=== PATIENT | male | born 1965 | race Caucasian/White ===

== ENCOUNTER → 2017-05-30 | Outpatient (CLI) | payer MEDICAID | LOC: FIMAGING 12:44 | PROVIDERS: ATTEND Family Medicine | DX: N18.4 Chronic kidney disease, stage 4 (severe) (principal); R39.11 Hesitancy of micturition; E11.22 Type 2 diabetes mellitus with diabetic chronic kidney disease; I10 Essential (primary) hypertension ==

== ENCOUNTER 2017-06-11 09:12 | Day surgery (SDC) | payer MEDICAID ==
[2017-06-11] MEDS ORDERED: LIDOCAINE 1% 2 ML INJ ID PRN (09:40)
[2017-06-11] MEDS ORDERED: LR 1,000 ML IV ONE (09:40)
--- NOTE | 2017-06-11 09:42 | PDGENHP ---
History & Physical Chief Complaint: Screening colonoscopy Relevant Physical Exam: GEN: NAD. Cardiac: RRR. Lungs: CTA B. Abd: Soft, nt, nd
[2017-06-11] MEDS ORDERED: PROPOFOL/EMULSION 500 MG/50 ML BOTTLE IV ONE (09:56)
[2017-06-11] MEDS ORDERED: NALOXONE HCL 0.4 MG/ML INJ IVP PRN (10:09)
[2017-06-11] MEDS ORDERED: ACETAMINOPHEN 500 MG TAB PO PRN (10:09)
[2017-06-11] MEDS ORDERED: ONDANSETRON 4 MG/2 ML VIAL IVP PRN (10:09)
--- NOTE | 2017-06-11 10:09 | PDANEPAE ---
ANE History of Present Illness %2 yo M w CRF here for screening [place], also for pre-transplant protocol ANE Past Medical History - Cardiovascular History Hx Hypertension: Yes Hx Arrhythmias: No Hx Chest Pain: No Hx Coronary Artery / Peripheral Vascular Disease: No Hx CHF / Valvular Disease: No Hx Palpitations: No - Pulmonary History Hx COPD: No Hx Asthma/Reactive Airway Disease: No Hx Recent Upper Respiratory Infection: No Hx Oxygen in Use at Home: No Hx Sleep Apnea: No Sleep Apnea Screening Result - Last Documented: Negative - Neurologic History Hx Cerebrovascular Accident: No Hx Seizures: No Hx Dementia: No - Endocrine History Hx Diabetes: Yes Endocrine History Comment: IDDM - Renal History Hx Renal Disorders: Yes Renal History Comment: chronic renal failure, pre-transplant - Liver History Hx Hepatic Disorders: No - Neurological & Psychiatric Hx Hx Neurological and Psychiatric Disorders: No - Cancer History Hx Cancer: No - Congenital Disorder History Hx Congenital Disorders: No - GI History Hx Gastrointestinal Disorders: No Gastrointestinal History Comment: screening colonoscopy - Other Health History Other Health History: NEG - Chronic Pain History Chronic Pain: Yes (L FOOT) - Surgical History Prior Surgeries: MULTIPLE X8 L FOOT [id number]. EYE SURG CHILDHOOD ANE Review of Systems Review of Systems: - Exercise capacity METS (RN): 4 METS ANE Patient History - Allergies Allergies/Adverse Reactions: No Known Allergies Allergy (Verified 06/03/17 15:06) - Home Medications Home medications: home medication list seen and reviewed Home Medications: Insulin Lispro [humALOG LISPRO 100 units/ml (*)] 0 unit SC TIDMEAL PRN 03/24/13 [Last Taken 06/09/17 18:00] Zolpidem Tartrate [Ambien 5MG (*)] 5 mg PO HS PRN 03/24/13 [Last Taken 06/10/17 22:00] Insulin Detemir [Levemir] 30 unit SQ HS 07/05/14 [Last Taken 06/10/17 22:00] Atorvastatin Calcium [Lipitor 10 mg (*)] 10 mg PO HS 01/12/16 [Last Taken 22:00] amLODIPine BESYLATE [Norvasc 5 mg (*)] 5 mg PO BID 01/12/16 [Last Taken 15:00] Furosemide 06/03/17 [Last Taken 06/09/17] - NPO status NPO Status: no food or drink >8 hours NPO Since - Liquids (Date): 06/11/17 NPO Since - Liquids (Time): 05:00 NPO Since - Solids (Date): 06/10/17 NPO Since - Solids (Time): 08:00 - Anes Hx Anes Hx: no prior problems - Smoking Hx Smoking Status: Never smoked - Alcohol Use Alcohol Use: Rarely - Family Anes Hx Family Anes Hx: none Family Hx Anesthesia Complications: NEG ANE Labs/Vital Signs - Vital Signs Blood Pressure: 127/78 Heart Rate: 53 Respiratory Rate: 16 O2 Sat (%): 96 Height: 180.34 cm Weight: 83.915 kg ANE Physical Exam - Airway Neck exam: FROM Mallampati Score: Class 2 Mouth exam: normal dental/mouth exam - Pulmonary Pulmonary: no respiratory distress, clear to auscultation - Cardiovascular Cardiovascular: regular rate and rhythym, no murmur, rub, or gallop - ASA Status ASA Status: III ANE Anesthesia Plan Anesthesia Plan: GA with mask Total IV Anesthesia: Yes
--- NOTE | 2017-06-11 10:28 | GIREPORT ---
[facility] Surgical Services - Endoscopy Department Patient Name: Mitch Reed Procedure Date: 06/11/2017 9:43 AM Patient Type: Outpatient Attending / SAÚL Physician: Merrick Blanton MD Procedure: Colonoscopy Indications: Screening for colorectal malignant neoplasm Providers: Merrick Blanton MD Medicines: Monitored Anesthesia Care Complications: No immediate complications. Findings: The perianal and digital rectal examinations were normal. The terminal ileum appeared normal. Three sessile polyps were found in the rectum. The polyps were 1 to 2 m m in size. These polyps were removed with a cold biopsy forceps. Resection a nd retrieval were complete. Verification of patient identification for the specimen was done by the physician and nurse using the patient's name a nd date. Estimated blood loss was minimal. A 3 mm polyp was found in the rectum. The polyp was sessile. The polyp was removed with a cold snare. Resection and retrieval were complete. Verification of patient identification for the specimen was done by the physician and nurse using the patient's name and date. Estimated blood loss was minimal. No additional abnormalities were found on retroflexion. Estimated Blood Loss: Estimated blood loss: none. Post Op Diagnosis: - The examined portion of the ileum was normal. - Three 1 to 2 mm polyps in the rectum, removed with a cold biopsy forc eps. Resected and retrieved. - One 3 mm polyp in the rectum, removed with a cold snare. Resected and retrieved. Recommendation: - Discharge patient to home (with escort). - Resume previous diet. - Continue present medications. - Repeat colonoscopy date to be determined after pending pathology resu lts are reviewed for surveillance based on pathology results. If 3 or more polyps are found to be adenomatous, a repeat colonoscopy in 3 years is recommended. If 1-2 polyps are found to be adenomatous, a repeat colono scopy in 5 years is recommended. Otherwise if all the polyps are hyperplastic , a repeat colonoscopy in 10 years is recommended. - Await pathology results. Results are available within 10 days. - Thank you for allowing me to participate in the care of your patient. Attending Participation: I personally performed the entire procedure. Merrick Blanton MD Merrick Blanton MD 06/11/2017 10:27:39 AM Number of Addenda: 0 Note Initiated On: 06/11/2017 9:43 AM Total Procedure Duration Time 0 hours 17 minutes 1 second [email or web address]
[2017-06-11 11:59] VITALS: BP 123/72; PULSE 45; RESP 18; TEMP 97.3; O2SAT 95
--- NOTE | 2017-06-11 13:08 | POSTANESTH ---
Post Anesthetic Evaluation Cardiovascular Status: Normal, Stable, Similar to Pre-Op Cond Respiratory Status: Normal, Stable, Similar to Pre-op Cond. Level of Consciousness/Mental Status: Can Participate in Eval, Alert and Oriented Pain Control: Adequate, Prn Tx Ordered Nausea/Vomiting Control: Adequate, Prn Tx Ordered Complications Possibly Related to Anesthesia: None Noted
== END 2017-06-11 12:00 | disposition home or self-care (01) ==
LOC: FSGY 09:12
PROVIDERS: ATTEND Internal Medicine Gastroenterology
PROC: 0DBP8ZX Excision of Rectum, Via Natural or Artificial Opening Endoscopic, Diagnostic (ICD-10-PCS; principal; 2017-06-11 09:30)
DX: Z12.11 Encounter for screening for malignant neoplasm of colon (principal); K62.1 Rectal polyp
CPT/HCPCS: J2704

== ENCOUNTER → 2017-07-16 | Outpatient (CLI) | payer MEDICAID | LOC: FIMAGING 17:25 | PROVIDERS: ATTEND Family Medicine | DX: N18.4 Chronic kidney disease, stage 4 (severe) (principal); E11.22 Type 2 diabetes mellitus with diabetic chronic kidney disease; I12.9 Hypertensive chronic kidney disease with stage 1 through stage 4 chronic kidney disease, or unspecified chronic kidney disease ==